=== PATIENT | male | born 1995 | race Caucasian/White ===

== ENCOUNTER 2020-04-02 06:26 | Outpatient (CLI) | payer BC, OTHER ==
[2020-04-02 18:14] LABS: SARS-CoV-2 MS2 Positive; SARS-CoV-2 N Gene Negative; SARS-CoV-2 S Gene Negative; SARS-CoV-2 orf1ab Negative
== END 2020-04-02 06:27 | disposition home or self-care (01) ==
LOC: LABBT 06:26
PROVIDERS: ATTEND Specialist
DX: Z01.812 Encounter for preprocedural laboratory examination (principal); Z11.59 Encounter for screening for other viral diseases; J03.90 Acute tonsillitis, unspecified; R09.81 Nasal congestion; J35.1 Hypertrophy of tonsils; G47.10 Hypersomnia, unspecified; R06.83 Snoring; G47.33 Obstructive sleep apnea (adult) (pediatric); J34.3 Hypertrophy of nasal turbinates; J34.2 Deviated nasal septum
CPT/HCPCS: 87635; U0003

== ENCOUNTER 2020-04-05 07:34 | Day surgery (SDC) | payer BC ==
[2020-04-02 11:38] VITALS: BMI 31.2
[2020-04-05] MEDS ORDERED: AFRIN NASAL MIST 15 ML BOT ONE ×2 (08:43→09:26)
[2020-04-05] MEDS ORDERED: Lidocaine 1% w/Epinephrine 1:100K 20 ML VIAL ONE (09:26)
[2020-04-05] MEDS ORDERED: Ferric Subsulfate (ASTRINGYN) 8 ML VIAL ONE (09:26)
[2020-04-05] MEDS ORDERED: Bacitracin Zinc Ointment 30 gm TUBE ONE (09:26)
[2020-04-05] MEDS ORDERED: Fentanyl 100 MCG/2 ML VIAL ONE ×2 (09:32→10:16)
[2020-04-05] MEDS ORDERED: Lidocaine 1% PF 5 ML VIAL ONE (13:14)
[2020-04-05] MEDS ORDERED: Rocuronium Bromide 10 MG/ML (10ML VIAL) ONE (13:14)
[2020-04-05] MEDS ORDERED: PROPOFOL 200 MG/20 ML VIAL ONE (13:14)
[2020-04-05] MEDS ORDERED: Ondansetron PF 4 MG/2 ML Vial ONE (13:14)
[2020-04-05] MEDS ORDERED: Dexamethasone 20 MG/5 ML VIAL ONE (13:14)
[2020-04-05] MEDS ORDERED: Glycopyrrolate 0.2 MG/ML 5 ML SYRINGE ONE (13:14)
[2020-04-05] MEDS ORDERED: Acetaminophen/Codeine 120-12MG/5 ML UDCUP PO PRN (14:14)
--- NOTE | 2020-04-06 08:19 | OP ---
DATE OF PROCEDURE: 04/05/2020 PREOPERATIVE DIAGNOSES: Sleep apnea, profound septal deformity, hypertrophic inferior turbinates, obstructive tonsillar hypertrophy, chronic tonsillitis, obstructive uvular hypertrophy, lateral nasal valve collapse. PROCEDURE PERFORMED: 1. Septoplasty. 2. Tonsillectomy over 12 years of age. 3. Uvulectomy, bilateral nasal endoscopy with submucosal resection of inferior turbinates, and bilateral lateral valve reconstruction using Latera. DESCRIPTION OF PROCEDURE: SEPTOPLASTY After local anesthesia was infiltrated into the submucoperichondrial plane, a standard Belle incision was made with a #15 blade down to the level of the septal cartilage. The caudal elevator was used to elevate the mucoperichondrium from the underlying cartilage. We then proceeded beyond the bony cartilaginous junction and elevated the bony periosteum as well. Great attention was paid to the spur to prevent rent formation in the septal flap. A transcartilaginous incision was then made, while preserving an adequate dorsal and caudal cartilaginous strut for tip support. The deformed cartilage was removed and disarticulated from the bony cartilaginous junction and maxillary crest. This was placed in saline and would later be crushed and returned to the mucoperichondrial envelope. We then elevated the contralateral periosteum from the bony cartilaginous region and removed the deformed portions of the bone and bony spurs. The cartilage was then crushed and placed back into the mucoperichondrial envelope and the mucosa was re-approximated with a quilting stitch composed of rapidly absorbent gut suture. The Belle incision was also closed with interrupted gut suture. At the completion of the case, Rao splints were placed and suture secured to the caudal septum. TONSILLECTOMY After consent was obtained, the patient was identified, brought to the operating room, and placed on the operating table in the supine position. General endotracheal anesthesia and intravenous access was obtained and we proceeded with positioning the patient for oropharyngeal surgery. Oropharyngeal exposure was obtained with a Norman-Rosendo mouth gag after a head drape was placed and secured with a towel clip. The Norman-Rosendo mouth gag was then suspended from the Tang tray and palatal elevation was achieved with a red rubber catheter. The right tonsil was addressed first. We used a curved Allis to grasp the tonsil and retract it medially as an anterior pillar incision was made with a #12 blade. The retrotonsillar fascial plane was then established and blunt dissection was performed with the suction cautery. Blood vessels were anticipated, identified, and cauterized as they were encountered. Ultimately, dissection was carried to the posterior tonsillar pillar mucosa which was incised hemostatically, as well as the base of tongue connection. The tonsil was then passed off as a specimen and bleeding points within the tonsillar bed were cauterized under direct visualization. We subsequently turned our attention to the contralateral side, where using a similar technique, a near identical procedure was performed. Again, the tonsil was grasped and retracted medially with a curved Allis as an anterior pillar incision was made with a #12 blade. The retrotonsillar fascial plane was established and while the anterior pillar was retracted medially, the hemostatic blunt dissection of the tonsil with a suction cautery was performed with blood vessels anticipated, identified, and cauterized as they were encountered. Again, dissection continued to the base of tongue and posterior tonsillar pillar mucosa which was incised in a hemostatic fashion. The tonsillar beds were then carefully inspected and bleeding points were identified and cauterized with a suction cautery. After this portion of the procedure, hemostasis was completely obtained. The patient's oral cavity was copiously irrigated with iced saline and subsequently suctioned. We then used the red rubber catheter to suction the gastric contents and the patient was subsequently aroused, awakened, and extubated without difficulty and transported to the recovery room in stable condition. There were no complications. UVULECTOMY The uvula was then grasped and retracted inferiorly as vertical incisions were made on either side of the insertion of the uvula into the soft palate. A crescentic portion of soft palate was then removed on each side of the relaxing incision, and the uvula was transected at the site where it normally would have interfaced with the soft palate. The anterior and posterior aspect of the wound was then reapproximated with interrupted chromic sutures. The patient was then awakened, extubated, and transferred to recovery where patient remained in stable condition prior to discharge home. BILATERAL NASAL ENDOSCOPY WITH SUBMUCOSAL RESECTION OF INFERIOR TURBINATES After consent was obtained, the patient was identified, brought to the operating room, and placed on the operating room table in the supine position. Consent was obtained, notifying the patient of the possibility of additional infections, bleeding, brain injury, and eye/orbital injury. The patient was placed on the operating room table, and general endotracheal anesthesia and intravenous access was obtained. The patient was then positioned, prepped and draped for endoscopic sinus surgery. Nasal preparation included trimming nasal vestibular hairs and spraying in topical Afrin. We then placed Afrin topical solution on nasal pledgets and strategically located them intranasally. The perinasal mucosa was injected with 1% lidocaine with 1:100,000 epinephrine in the submucoperichondrial plane of the septum, lateral nasal wall, and anterior to the uncinate. The patient was then prepped and draped in a sterile fashion and positioned for endoscopic sinus surgery. With the 0-degree endoscope, the patient underwent systematic nasal endoscopy. There were no suspicious internasal masses or lesions identified. We then focused our attention to the osteomeatal complex region under the middle turbinate. The inferior turbinates were visualized with a 0 degree endoscope and outfractured with a Phyllis elevator. The inferior medial aspect was cauterized with the electrocautery. Hemostasis was obtained . After adequate airway was established, we turned our attention to the contralateral side and used a similar procedure. Again, a Nga elevator was used to outfracture inferior turbinates under endoscopic visualization. With a suction cautery, the free inferior medial aspect was cauterized under direct visualization along the length of the inferior turbinate. At this point, we then turned our attention to the contralateral side and proceeded with endoscopic sinus surgery. At the completion of the case, Rice keel splints were placed in the ethmoid cavities after the ethmoidectomy. There were no complications. The patient tolerated the procedure well and was discharged to the recovery room in stable condition prior to return to the preoperative day stay with ultimate discharge home. Prescriptions for pain medication and antibiotics were provided. The patient received intramuscular Depo-Medrol during the case. At the completion of the procedure, we proceeded with lateral nasal valve repair. The topical anatomy was delineated and marked and the area of intended insertion was infiltrated with 1% lidocaine with 1:100,000 epinephrine. We then everted the nasal ala and was able to enter the insertion device through the alar tissue down to the dorsum of the nasal bone. We then skived along the bone to the insertion site and released the implant, held pressure as the implant device was withdrawn. Identical technique was used in the contralateral side. The patient was awakened, extubated, taken to recovery room in a stable condition prior to discharge home. Job ID: [id number]
== END 2020-04-05 15:38 | disposition home or self-care (01) ==
LOC: SDC 07:34
PROVIDERS: ATTEND Specialist
PROC: 0CTPXZZ Resection of Tonsils, External Approach (ICD-10-PCS; principal; 2020-04-05)
PROC: 0CTNXZZ Resection of Uvula, External Approach (ICD-10-PCS; principal; 2020-04-05)
PROC: 09TL8ZZ Resection of Nasal Turbinate, Via Natural or Artificial Opening Endoscopic (ICD-10-PCS; principal; 2020-04-05)
PROC: 09BM8ZZ Excision of Nasal Septum, Via Natural or Artificial Opening Endoscopic (ICD-10-PCS; principal; 2020-04-05)
DX: J34.2 Deviated nasal septum (principal); J34.3 Hypertrophy of nasal turbinates; J34.89 Other specified disorders of nose and nasal sinuses; J35.01 Chronic tonsillitis; K13.79 Other lesions of oral mucosa; G47.33 Obstructive sleep apnea (adult) (pediatric); G47.10 Hypersomnia, unspecified; F90.9 Attention-deficit hyperactivity disorder, unspecified type; K21.9 Gastro-esophageal reflux disease without esophagitis; J45.909 Unspecified asthma, uncomplicated; Z88.1 Allergy status to other antibiotic agents; Z88.5 Allergy status to narcotic agent
CPT/HCPCS: 88304; J1100; J2001; J2405; J2704; J3010